=== PATIENT | male | born 1940 | race Caucasian/White ===

== ENCOUNTER 2019-06-23 19:16 | Emergency (ER) | payer MEDICARE, OTHER ==
[~2019-06-23] VITALS: Ht 177.8 cm; Wt 101.6 kg
[2019-06-23] MEDS ORDERED: CEPH500T PO (19:35)
--- NOTE | 2019-06-23 19:36 | ED Integumentary General ---
General Chief Complaint: Skin/Wound Problems Stated Complaint: POSSIBLE INFECTION FROM INGROWN TOENAIL Nursing Triage Note: PT HAD HIS LEFT BIG TOENAIL REMOVED ON THE May AND IT IS NOW RED AND SWOLLEN. Source: patient Exam Limitations: no limitations History of Present Illness Date Seen by Provider: Jun 23, 2019 Time Seen by Provider: 19:28 Initial Comments This is a an 79 y/o m who presents to the ED with c/o progressive eryth colten/swelling to L great toe. Reports toenail removed for fungus infection on 06/12. Small progressive erythema over the past 2 days. no fever, 1-2/10 local pain with touch/movement, sharp, Not a diabetic. Has not been on any recent ABX. No history of MRSA infections. Allergies and Home Medications Allergies Coded Allergies: No Known Drug Allergies (Unverified , 06/23/19) Home Medications Cephalexin 500 Mg Tablet, 500 MG PO QID Prescribed by: DENY MATTHEWS on 06/23/191934 Patient Home Medication List Home Medication List Reviewed: Yes Review of Systems Review of Systems Constitutional: No chills, No fever, No weakness Respiratory: No cough, No orthopnea, No short of breath Cardiovascular: No chest pain, No edema, No palpitations Gastrointestinal: No abdominal pain, No nausea, No vomiting Musculoskeletal: No joint swelling, No muscle pain, No muscle stiffness Skin: change in color; No pruritus; rash All Other Systems Reviewed Negative Unless Noted: Yes Past Tzsubtz-Mcsvoc-Cppixv Hx Patient Social History Recent Foreign Travel: No Contact w/Someone Who Travel: No Recent Infectious Disease Expo: No Physical Exam Vital Signs Vital Signs - First Documented 06/23/19 19:28 Temp 98.9 Pulse 70 Resp 18 B/P (MAP) 113/91 (98) Pulse Ox 98 O2 Delivery Room Air Capillary Refill : Less Than 3 Seconds General Appearance: WD/WN, no apparent distress, other (Appears younger than stated age, Non-toxic appearing) HEENT: PERRL/EOMI Neck: full range of motion Cardiovascular: no edema Respiratory: no respiratory distress Back: other (Normal ROM ) Extremities: normal range of motion, other (no lower extremity edema. steady gait ) Neurologic/Psychiatric: alert, normal mood/affect, oriented x 3 Skin: other (Remote removal of entire nail of 1st digit of L foot with intact scab. Generalized erythema of entire great toe that extends just proximal to the MTP joint. DP pulse +2/4. no swelling to foot. ) Progress/Results/Core Measures Results/Orders My Orders Orders - DENY MATTHEWS DO Cephalexin Capsule (Keflex Capsule) (06/23/19 19:45) Vital Signs/I&O 06/23/19 19:28 Temp 98.9 Pulse 70 Resp 18 B/P (MAP) 113/91 (98) Pulse Ox 98 O2 Delivery Room Air Blood Pressure Mean: 98 Progress Progress Note : Progress Note Mild early cellulitis to Left great toe. Not a diabetic. Appropriate for trial of outpt ABX. Area of infection marked/dated. Advised close outpt follow up. First dose of ABX given in ED. ER return precautions given. Pt verbalized understanding. All questions answered. Departure Impression Primary Impression: Cellulitis Disposition: 01 HOME, SELF-CARE Condition: Stable Departure-Patient Inst. Decision time for Depature: 19:36 Patient Instructions: Cellulitis (Skin Infection), Adult (DC) Add. Discharge Instructions: Please take the entire course of antibiotics as prescribed. Follow up with your primary care physician in the next 2-3 days for continued evaluation. All discharge instructions reviewed with patient and/or family. Voiced understanding. Scripts Cephalexin (Cephalexin) 500 Mg Tablet 500 MG PO QID for 7 Days, #28 TAB 0 Refills Prov: DENY MATTHEWS DO 06/23/19 DENY MATTHEWS DO Jun 23, 2019 19:35
[2019-06-23 19:41] VITALS: BP 118/87
[2019-06-23] MEDS ORDERED: CEPHALEXIN 250 MG (KEFLEX) CAP PO ONE (19:45)
== END 2019-06-23 19:43 | disposition home or self-care (01) ==
LOC: ER FS 19:19
DX: L03.032 Cellulitis of left toe (principal)
CPT/HCPCS: 99283